=== PATIENT | female | born 1985 | race Hispanic/Latino ===

== ENCOUNTER 2019-09-25 23:42 | Inpatient (IN) | payer MEDICAID, OTHER, SELFPAY ==
[2019-09-26] MEDS ORDERED: hydrALAZINE 20 MG/ML VIAL SLOW IVP PRN (00:41)
[2019-09-26] MEDS ORDERED: Lidocaine 1% (PF) 30 ML VIAL SC PRN (00:41)
[2019-09-26] MEDS ORDERED: Methylergonovine 0.2 MG/ML VIAL IM PRN (00:41)
[2019-09-26] MEDS ORDERED: Ibuprofen 800 MG TAB PO PRN (00:41)
[2019-09-26] MEDS ORDERED: Ondansetron PF 4 MG/2 ML Vial IVP PRN (00:41)
[2019-09-26] MEDS ORDERED: Promethazine HCl 25 MG/ML VIAL IM PRN (00:41)
[2019-09-26] MEDS ORDERED: Diphenoxylate HCl/Atropine Tablet PO PRN ×2 (00:41)
[2019-09-26] MEDS ORDERED: NS / Oxytocin 40 units/1000ml 1,000 ML IV PRN (00:41)
[2019-09-26] MEDS ORDERED: Misoprostol 200 MCG TAB PR PRN (00:41)
[2019-09-26] MEDS ORDERED: Carboprost 250 MCG/ML AMP IM PRN (00:41)
[2019-09-26] MEDS ORDERED: Butorphanol Tartrate 1 MG/ML VIAL SLOW IVP PRN (00:41)
[2019-09-26] MEDS ORDERED: Lactated Ringer's 1,000 ML IV SCH (00:45)
--- NOTE | 2019-09-26 01:02 | PDOC.FPROB ---
FMR OB H&P: HPI - History of Present Illness Chief Complaint: painful contractions Indentification: History of Present Illness: 33YO @ 39.6 WGA (ROHAN 09/27/19) who presented to L&D for painful, regular contractions. Reports the contractions started yesterday @ 0400 & were initially hours apart but over the course of the day became more regular and painful prompting her to eventually report to L&D for evaluation. Denies any complications this other than anemia. Reports good movement. Denies any LOF, VB or abnormal d/c. No reported infections this . Was last seen in [facility] on Saturday & reports her GBS swab done at that time was negative. Will attempt to call [facility] to confirm time permitting. Primary Care Physician: EDIE Wayne/ FMR OB H&P: Current - Care : 5 Para: [id number] Gestational age: 39.6 Due date: 09/27/19 Course/Complications: anemia - OB Labs Blood type: A RH: positive GBS: negative (per patient) FMR OB H&P: History - Past Medical History PMH: None - OB History OB History: 4 term NSVDs w/o complications - [employer] History B[employer] History: No reported h/o STIs. Last pap done this & was normal. - Surgical History Sx History: None - Social History Social History: No TAD. Lives at home with & 4 children. - Family History Family History: non-contributory FMR OB H&P: Medications - Current Home Medications: Medication Instructions Recorded Confirmed Type No Known 09/26/19 09/26/19 History Allergies/Adverse Reactions: Allergies Allergy/AdvReac Type Severity Reaction Status Date / Time No Known Drug Allergies Allergy Verified 09/26/19 01:06 FMR OB H&P: ROS - Review of Systems General: denies: fever/chills Eyes: denies: vision changes, floaters ENT: denies: nasal congestion, sore throat Cardiovascular: denies: chest pain, edema Respiratory: denies: cough, shortness of breath Gastrointestinal: denies: nausea, vomiting, diarrhea, constipation Genitourinary (Female): reports: contractions, vaginal pressure. denies: vaginal discharge, vaginal pain Musculoskeletal: denies: swelling, arthritis/arthralgias Neurologic: denies: headache Integumentary: denies: itching, rash FMR OB H&P: Vital Signs - Heart Tones Baseline: 130 Variability: moderate Acceleration: present Deceleration: absent Category: category 1 [place] contractions every: 2-3 minutes FMR OB H&P: Physical Exam - Physical Exam General: awake, alert and oriented, other (mild distress 2/2 contractions) HEENT: normocephalic and atraumatic, MMM, grossly normal vision, grossly normal hearing Neck: supple, FROM Heart: RRR, normal S1/S2, no murmurs/rubs/gallops, no edema General: CTAB, no respiratory distress Abdomen: gravid Musculoskeletal: FROM in all four extremities Neurological: cranial nerves II through XII intact, sensation to pain,touch and proprioception grossly normal, no focal deficit Skin: no rash, good tugor Psychiatric: intact recent and remote memory, good judgement and insight, normal mood and affect - Pelvic Exam Vulva: normal hair distribution, appropriate mikael stage, no masses, no lesions Cervix: no masses, no lesions SVE: /-1 Membranes: intact Presentation: cephalic FMR OB H&P: A/P - Problem List (1) Term Current Visit: Yes Status: Acute Code(s): Z34.90 - ENCNTR FOR SUPRVSN OF NORMAL , UNSP, UNSP TRIMESTER (2) Anemia affecting fifth Current Visit: Yes Status: Acute Code(s): O99.019 - ANEMIA COMPLICATING , UNSPECIFIED TRIMESTER; O09.40 - SUPERVISION OF W GRAND MULTIPARITY, UNSP TRIMESTER Disposition: 33YO @ 39.6 WGA who presented to L&D complaining of regular painful contractions & was found to be in active labor. sIUP @ 39.6 WGA in active labor: - Will admit to L&D for routine intrapartum management. Reports she is GBS negative. Will request records from [facility] for confirmation. Does not desire an epidural. - on arrival. Anticipate imminent delivery given this will be the patient 's 5th vaginal delivery. Will recheck once settled in room. Anemia in : - Reported by patient. Admission CBC pending. Will resume PNVs &/or iron based on results PP. Dispo: Will admit to L&D for routine intrapartum management. Discussion: Date/Time: 09/26/19 0058 This H&P was discussed with Dr. Perkins who agrees with the above documentation and plan.
[2019-09-26 01:03] VITALS: BMI 35.5
[2019-09-26 01:05] LABS: Hemoglobin 11.9 g/dL (12.0-16.0); Mean Corpuscular HGB CONC 33.4 g/dL (32.0-36.0); Mean Corpuscular Hemoglobin 29.2 pg (27.0-31.0); Mean Corpuscular Volume 87.4 fL (78.0-98.0); Mean Platelet Volume 6.9 fL (7.4-10.4); Platelet Count 230 thou/uL (130-400); RBC Distribution Width 12.8 % (11.5-14.5); Red Blood Cell (RBC) Count 4.09 mill/uL (4.20-5.40); White Blood Cell (WBC) Count 10.9 thou/uL (4.8-10.8)
[2019-09-26] MEDS ORDERED: NS / Oxytocin 40 units/1000ml 1,000 ML ONE (01:09)
[2019-09-26] MEDS ORDERED: Lidocaine 1% (PF) 30 ML VIAL ONE (01:09)
[2019-09-26 01:42] LABS: HBSAg Index 0.16 S/CO (0-0.99); Hep B Surf Ag Non-Reactive S/CO (NonReactive)
[2019-09-26] MEDS ORDERED: Penicillin G Potassium 5 MILL.UNITS in Sodium Chloride 0.9% 100 ML IVPB SCH (01:45)
--- NOTE | 2019-09-26 01:56 | PDOC.OPDEL ---
OB Operative/Delivery Note Delivery Dr/Surgeon: Jason Pre-Delivery Diagnosis: active labor Procedure/Post Delivery Dx: spontaneous vaginal delivery Weeks gestation: 39 (39.6) Anesthesia: none - Additional Findings/Plan Placenta delivered: spontaneous Repaired Obstetrical Laceration: none Estimated blood loss: QBL: 62mL Compilations/Other Findings: Delivering Physician: Dr. Hattie Monahan MD Attending: Dr. Lyndon Perkins MD Procedure: Spontaneous Vaginal Delivery Anesthesia: None QBL: 62 ml Pre-op Diagnosis: 1. Term intrauterine in labor 2. Anemia in Post-op Diagnosis: 1. Term intrauterine , delivered 2. same as above Indications: A 33 y/o female presents in active labor. Delivery Note: This is 33yo F @ 39.6 wks who delivered a viable M at 0120. Following an uneventful antepartum course, a vigorous male was delivered over an intact perineum in the occipitoanterior position. Anterior Shoulder and then remainder of the body delivered. No nuchal cord. The head was held down and mouth and nares were bulb suctioned. Cord clamped after delayed cord clamping and cut and cord blood collected. Placenta delivered intact in the [place] presentation with a 3 vessel cord noted. Fundal massage was performed and the fundus was firm. The cervix and vagina were inspected and found to be free of lacerations. Infant went to nursery in good condition for routine care. Apgars were 8/9 at 1 & 5 minutes, respectively. Patient tolerated delivery well and went to after routine recovery/ care. Post delivery plan: routine recovery
[2019-09-26] MEDS ORDERED: Penicillin G 2.5 MILL.units 2.5 MILL.UNITS in Premix Bag 1 BAG IVPB SCH (02:00)
[2019-09-26 04:17] LABS: Syphilis Antibody Nonreactive (Nonreactive); Syphilis Antibody Index 0.05 S/CO (<1.00 Non-Reactive)
[2019-09-26] MEDS ORDERED: NS / Oxytocin 40 units/1000ml 1,000 ML IV SCH (05:59)
[2019-09-26] MEDS ORDERED: Milk Of Magnesia 30 ML UDCUP PO PRN (05:59)
[2019-09-26] MEDS ORDERED: Lanolin Ointment 7 GM TUBE TOP PRN (05:59)
[2019-09-26] MEDS ORDERED: Benzocaine-Menthol 82.5 ML CAN TOP PRN (05:59)
[2019-09-26] MEDS ORDERED: Bisacodyl 10 MG SUPP PR PRN (05:59)
[2019-09-26] MEDS: Docusate Calcium (SURFAK) 240 MG CAP PO SCH ×2 (09:32→21:30)
[2019-09-26] MEDS: Ibuprofen 800 MG TAB PO SCH ×3 (09:32→21:31)
[2019-09-26] MEDS: Prenatal Vitamin 1 TAB PO SCH (09:32)
[2019-09-26] MEDS: Ferrous Sulfate 325 MG TAB PO SCH ×2 (09:32→19:23)
[2019-09-27] MEDS: Ibuprofen 800 MG TAB PO SCH (05:40)
--- NOTE | 2019-09-27 07:00 | PDOC.PP ---
Post Progress Note Post Day #: 1 Subjective: Doing well, no concerns, ready for home. Improved bleeding, no concerns per nursing PO intake tolerated: yes Flatus: yes Ambulation: yes Vital Signs (12 hours) Temp Pulse Resp BP Pulse Ox 09/27/19 00:35 98.6 F 62 16 97/52 L 09/26/19 20:50 98.7 F 72 16 101/62 97 Weight Weight 99.79 kg - Physical Examination General: NAD Cardiovascular: RRR Respiratory: non-labored breathing Abdominal: appropriately TTP Neurological: no gross focal deficits Psychiatric: A&Ox3, normal affect Result Diagrams: 09/26/19 00:55 Additional Labs: Post Labs Blood Type A POSITIVE 09/26/19 02:16 Hep Bs Antigen Non-Reactive S/CO (NonReactive) 09/26/19 00:55 - Assessment/Plan 1. S/P Term , PPD1 in now -Doing well, no concerns -Ready for home - going well -PP contraception: Vasectomy Dispo: likely d/c home today
[2019-09-27] MEDS: Docusate Calcium (SURFAK) 240 MG CAP PO SCH (09:39)
[2019-09-27] MEDS: Ferrous Sulfate 325 MG TAB PO SCH (09:39)
[2019-09-27] MEDS: Prenatal Vitamin 1 TAB PO SCH (09:39)
[2019-09-27 10:49] VITALS: BP 99/56; TEMP 98.1
== END 2019-09-27 12:05 | disposition home or self-care (01) | DRG 807 ==
LOC: L&D/OP 23:42 → L&D 09-26 00:57 → 3SW 09-26 07:56
PROVIDERS: ADMIT Family Medicine; ATTEND Obstetrics & Gynecology
PROC: 10E0XZZ Delivery of Products of Conception, External Approach (ICD-10-PCS; principal; 2019-09-26)
DX: O99.02 Anemia complicating childbirth (principal); Z37.0 Single live birth; Z3A.39 39 weeks gestation of pregnancy; D64.9 Anemia, unspecified
CPT/HCPCS: 36415; 85027; 86780; 86850; 86900; 86901; 87340; J2001

== ENCOUNTER 2022-12-27 19:41 | Emergency (ER) | payer OTHER, SELFPAY ==
[~2022-12-27 19:41] MED LIST: Iopamidol 370 76% 100 ML VIAL ONE
[2022-12-27 21:29] LABS: Bacteria/HPF None Seen HPF (None Seen); Bilirubin Negative (Negative); Blood, Urine Trace (Negative); CAUTI Indications for Culture Dysuria,urgency,freq; Clarity Clear (Clear); Glucose, Urine (Dipstick) Normal (Negative); Ketone, Urine Negative (Negative); Leukocyte Negative Leu/uL (Negative); Nitrite Negative (Negative); Protein, Urine (Dipstick) Negative (Neg-Trace); RBC/HPF 0-3 HPF (0-3); Specific Gravity, Urine 1.011 (1.002-1.036); Squamous Epithelial 0-3 HPF (0-3); Urobilinogen Normal mg/dL (Less than 2); WBC/HPF 0-3 HPF (0-3)
[2022-12-27 21:32] LABS: Pregnancy Test - Urine (BHCG) Negative (Negative); Pregu Control Background? CLEAR/WHITE (CLR/WHITE); Pregu Control Bar Appear? YES (CONTROL BAR); Specific Gravity 1.011 (1.002-1.036)
[2022-12-27 21:33] LABS: Urine Culture Reflex No No
[2022-12-27] MEDS ORDERED: Ondansetron PF 4 MG/2 ML Vial ONE (22:15)
[2022-12-27] MEDS ORDERED: Morphine 4 MG/ML VIAL ONE (22:15)
[2022-12-27 22:25] LABS: #Monocytes 0.6 thou/uL (0.11-0.59); #Neutrophils 6.5 thou/uL (1.40-6.50); %Basophils 0.3 % (0.0-1.0); %Eosinophils 0.5 % (0.0-10.0); %Lymphocytes 17.9 % (21.0-51.0); %Monocytes 6.3 % (0.0-10.0); %Neutrophils 74.7 % (42.0-75.0); Hematocrit 39.9 % (36.0-47.0); Hemoglobin 13.3 g/dL (12.0-16.0); Mean Corpuscular HGB CONC 33.3 g/dL (32.0-36.0); Mean Corpuscular Hemoglobin 28.9 pg (27.0-31.0); Mean Corpuscular Volume 86.7 fl (78.0-98.0); Platelet Count 257 10x3/uL (130-400); RBC Distribution Width 12.8 % (11.5-14.5); White Blood Cell (WBC) Count 8.7 10x3/uL (4.8-10.8)
[2022-12-27 22:50] LABS: ALT (SGPT) 24 U/L (8-55); AST (SGOT) 19 U/L (5-34); Albumin 4.8 g/dL (3.5-5.0); Alkaline Phosphatase 83 U/L (40-110); Anion Gap 13 mmol/L (10-20); BUN (Urea Nitrogen) 7 mg/dL (7.0-18.7); Bilirubin, Total 0.2 mg/dL (0.2-1.2); Calc. Creatinine Clearance 0 mL/min (70-130); Calcium 9.7 mg/dL (7.8-10.44); Carbon Dioxide 23 mmol/L (22-29); Chloride 106 mmol/L (98-107); Estimated GFR 114; Globulin 3.2 g/dL (2.4-3.5); Glucose 119 mg/dL (70-105); Lipase 20 U/L (8-78); Potassium 3.8 mmol/L (3.5-5.1); Sodium 138 mmol/L (136-145)
== END 2022-12-28 01:10 | disposition home or self-care (01) ==
LOC: ERS 19:41
DX: R10.30 Lower abdominal pain, unspecified (principal)
CPT/HCPCS: 74177; 76856; 80053; 81001; 81025; 83690; 85025; 96374; J2270; J2405; Q9967